=== PATIENT | male | born 1990 | race Asian ===

== ENCOUNTER 2023-12-13 08:00 | Emergency (ER) | payer OTHER, SELFPAY ==
[2023-12-13 08:03] VITALS: BP 129/93
--- NOTE | 2023-12-13 08:09 | ED.GENMED ---
History of Present Illness
General
Chief Complaint: Overdose Intentional
Source: patient
Exam Limitations: none
Time Seen by Provider: 12/13/23 08:08
Travel History
Have you had any contact with someone who has COVID-19?: No
Do you have any symptoms of coronavirus? Fever > 100 degrees, chills, cough, shortness of breath, sore throat, loss of taste or smell, muscle aches, or headache?: No
History of Present Illness
History of Present Illness:
33-year-old male who presents for evaluation. The patient took an overdose of Benadryl Thursday night at around 10 PM. 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 In addition, his parents live
with him and have been difficult for him to deal with as his mom seems to sort of blame him for the child autism. Patient states he has been think about suicide recently and on Thursday felt like he was at his limit. Patient states yesterday he felt
confused and dry mouth. He states that today he thought he would be completely better but still does not feel quite back to normal. Denies take anything else. Took about 30 Benadryl 25 mg. States he realizes it was stupid. His family is
actively looking for different living arrangement for his parents. Patient currently does not feel suicidal. Does have a therapist as outpatient
Past History
Past History
ED Past Medical History: None
ED Past Surgical History: None
Phy Exam
Physical Exam
Physical Exam:
CONSTITUTIONAL Patient alert and oriented to person, place and time. Well-appearing. Vital signs reviewed.
HEAD atraumatic, normocephalic.
EYES eyelids normal to inspection, Pupils equally round and reactive to light, Extraocular muscles intact, Conjunctiva normal, Sclera normal.
NECK normal range of motion, Trachea midline, no jugular venous distention.
RESPIRATORY CHEST No respiratory distress noted, Chest expansion equal, Bilateral breath sounds clear.
CARDIOVASCULAR regular rate and rhythm, Heart sounds normal.
ABDOMEN abdomen nontender, Bowel sounds normal. No distention.
BACK normal inspection, no obvious deformities
UPPER EXTREMITY range of motion normal, Motor strength normal, no cyanosis, no edema.
LOWER EXTREMITY range of motion normal, Motor strength normal, no cyanosis, no edema.
NEURO Speech normal, No focal motor deficits, Zaid coma scale 15, Memory normal, Cranial Nerves intact to screening exam.
SKIN skin warm, dry, and normal in color.
PSYCHIATRIC patient oriented to person place and time, Normal affect.
Course
Orders/Labs/Results
Orders:
Orders
12/13/23 08:09
EKG [Electrocardiogram (*1)] Urgent
Reason for Study: Fatigue / Weakness
EKG- Treatment ONCE
12/13/23 08:16
Crisis Consult Urgent
Reason for Consult: overdose
12/13/23 08:20
1:1 Observation - Suicide/ Violent Behavior As Directed
12/13/23 08:25
Acetaminophen Urgent
Alcohol Urgent
Complete Blood Count/With Diff Urgent
Comprehensive Metabolic Panel Urgent
Salicylate Urgent
12/13/23 08:35
0.9% Sodium Chloride 1000 ml [Nss] 1,000 ml IV BOLUS
12/13/23 09:54
Urinalysis Reflex To Culture Urgent
Date Specimen was Collected: 12/13/23
Time Specimen was Collected: 09:49
Urine Drug Abuse Screen Urgent
Date Specimen was Collected: 12/13/23
Time Specimen was Collected: 09:49
12/13/23 10:34
COVID-19 Antigen Urgent
Source: Nasal Swab
Abnormal Lab Results
12/13/23
08:25
Immature Gran % 0.7 H %
(0-0.5)
Salicylates < 1.0 L mg/dl
(2.0-20.0)
Acetaminophen < 10 L ug/ml
(10-30)
12/13/23 08:25
12/13/23 08:25
Vital Signs
Initial and Last Documented VS:
Initial Vital Signs
Temp Pulse Resp BP Pulse Ox
98.3 F 81 20 129/93 98
12/13/23 08:03 12/13/23 08:03 12/13/23 08:03 12/13/23 08:03 12/13/23 08:03
Last Documented Vital Signs
Temp Pulse Resp BP Pulse Ox
98.3 F 70 14 107/73 99
12/13/23 08:03 12/13/23 10:30 12/13/23 10:30 12/13/23 10:00 12/13/23 10:30
MDM/Problems Addressed
MDM/Problems Addressed:
Major depression, suicide attempt, Benadryl overdose
*Pulse Oximetry
Patient hypoxic: no
*EKG
Interpreted by ED Provider?: Yes
Interpretation: normal
Rate: normal
Rhythm: sinus
[place]: normal axis
Interval: normal interval
Ischemia: no ischemia
*Inspection Engineer Interpretation
Rate: normal
Interpretation: normal
Rhythm: sinus
*Critical Care Note
Total Time (30-74mins, 75-104mins- exclusive of procedures): 30 minutes
Data Reviewed
Source: patient
Patient Management
Discussion with other providers: Other (Case discussed with crisis.)
Escalation/DeEscalation of care consider admission/obs:
Patient appears well. Stable for perspective as his more than 36 hours ago. Patient is agreeable inpatient care. Okay for discharge to crisis
ED Attending Note
-
Portions of this chart may have been created with voice recognition software.� Occasional wrong word or��sound alike� substitutions may have occurred due to the inherent limitations of voice recognition software.
Discharge Plan
Departure
Patient Disposition: [facility]
Date of Disposition: 12/13/23
Time of Disposition: 10:36
Patient with high blood pressure during this ER visit?: No
Discharge Problem:
Major depression, Benadryl overdose
Prescriptions:
No Action
No Current Medications
0
Referrals:
NONE,* [Family Provider] -
Interventions
Interventions:
*Risk Screen - Suicide Last Done: 12/13/23 08:16
*General Assessment Last Done: 12/13/23 08:21
*Neglect/Abuse Screening Last Done: 12/13/23 08:16
ED- Fall Risk Assessment Last Done: 12/13/23 08:21
*ED COVID-19 Vaccine History Last Done: 12/13/23 08:03
*Nursing Disposition Last Done: 12/13/23 11:00
ED- Cardiac Assessment Last Done: 12/13/23 08:22
ED- Neurological Assessment Last Done: 12/13/23 08:22
ED-Psychological Assessment Last Done: 12/13/23 08:15
ED- Pulmonary Assessment Last Done: 12/13/23 08:22
Discharge Date and Time
Discharge Date/Time: 12/13/23 11:01
Print Language: SLOVENIAN
[2023-12-13 08:14] VITALS: BMI 26.3
[2023-12-13] MEDS: NSS 1000 IV (08:37)
[2023-12-13 08:39] LABS: % Basophils 0.5 % (0-2); % Eosinophils 1.5 % (0-6); % Immature Granulocytes 0.7 % (0-0.5); % Lymphocytes 26.5 % (20.5-51.1); % Monocytes 5.3 % (1.7-9.3); % Neutrophils 65.5 % (42.2-75.2); Absolute Eosinophils 0.1 10^3/uL (0-0.7); Absolute Lymphocytes 1.6 10^3/uL (1.2-3.4); Absolute Monocytes 0.3 10^3/uL (0.1-0.6); Absolute Neutrophils 3.9 10^3/uL (1.4-6.5); Hematocrit 45.6 % (39.0-52.0); Hemoglobin 15.4 g/dL (13.0-18.0); Mean Corp Hgb Conc. 33.8 g/dL (33.0-37.0); Mean Corpuscular Hgb 28.2 pg (27.0-31.0); Mean Corpuscular Volume 83.4 fL (80.0-94.0); Mean Platelet Volume 10.3 fL (7.4-10.4); Nucleated Red Blood Cells % 0 % (-); Platelet Count 254 10^3/uL (130-400); Red Blood Cell Count 5.47 10^6/uL (4.70-6.10); Red Cell Dist. Width 12.6 % (11.5-14.5); White Blood Cell Count 5.9 10^3/uL (4.8-10.8)
[2023-12-13 08:56] LABS: ALT (SGPT) 48 U/L (0-50); AST (SGOT) 38 U/L (17-59); Acetaminophen < 10 ug/ml (10-30); Albumin 4.5 g/dl (3.5-5.0); Alkaline Phosphatase 63 U/L (38-126); Blood Urea Nitrogen 20 mg/dl (9-20); Calcium 9.7 mg/dl (8.4-10.2); Carbon Dioxide 28 mmol/L (22-30); Chloride 105 mmol/L (98-107); Estimated Creatinine Clearance 85 ml/min; Glucose 96 mg/dl (70-99); Potassium 3.9 mmol/L (3.5-5.1); Salicylate < 1.0 mg/dl (2.0-20.0); Sodium 138 mmol/L (135-145); Total Bilirubin 0.6 mg/dl (0.2-1.3); Total Protein 7.3 g/dl (6.3-8.2); eGFR > 60.00
[2023-12-13 08:57] LABS: Alcohol None Detected
[2023-12-13 09:14] VITALS: BP 124/81
[2023-12-13 09:51] VITALS: BP 120/73
[2023-12-13 10:00] VITALS: BP 107/73
[2023-12-13 10:22] LABS: Urine Albumin Negative (Neg - Trace); Urine Bilirubin Negative (Negative); Urine Character Clear (Clear); Urine Color Yellow; Urine Glucose Negative (Negative); Urine Ketone Negative (Negative); Urine Leukocyte Negative (Negative); Urine Nitrite Negative (Negative); Urine Occult Blood Negative (Negative); Urine Urobilinogen Negative (Neg - 1+); Urine pH 6.5 (5.0-9.0)
[2023-12-13 10:38] LABS: Amphetamines Negative (Negative); Barbiturates Negative (Negative); Benzodiazepines Negative (Negative); Buprenorphine Negative (Negative); Cocaine Negative (Negative); Marijuana Negative (Negative); Methadone Negative (Negative); Methamphetamines Negative (Negative); Opiates Negative (Negative); Phencyclidine Negative (Negative); Tricyclic Antidepressants Negative (Negative)
[2023-12-13 11:16] LABS: COVID-19 Antigen Negative (Negative)
== END 2023-12-13 11:01 ==
LOC: EMR 08:00
PROVIDERS: EMERGENCY PHYSICIAN Emergency Medicine
DX: T45.0X2A Poisoning by antiallergic and antiemetic drugs, intentional self-harm, initial encounter (principal); X58.XXXA Exposure to other specified factors, initial encounter; F84.0 Autistic disorder; F32.9 Major depressive disorder, single episode, unspecified
CPT/HCPCS: 99283; 96360; 80053; 80143; 80179; 80306; 81003; 82077; 85025; 87811; 93005